=== PATIENT | male | born 1950 | race Asian ===

== ENCOUNTER 2020-02-26 19:36 | Emergency (ER) | payer OTHER, MEDICAID ==
[~2020-02-26] VITALS: Ht 180.3 cm; Wt 83.9 kg
[2020-02-26 19:49] VITALS: Ht 180.3 cm; Wt 83.9 kg
[2020-02-26 21:00] LABS: BASOPHIL % 0.8 % (0-2); PLATELET COUNT 262 x10^3mcL (130-400); RED CELL DISTRIBUTION WIDTH 14.6 % (11.5-14.5)
[2020-02-26 21:10] LABS: CALCIUM 8.8 mg/dL (8.5-10.1); CARBON DIOXIDE 23.1 mmol/L (21-32); CHLORIDE SERUM 107 mmol/L (98-107); CREATININE SERUM 1.7 mg/dL (0.7-1.3); GFR1 43 mL/min; GLUCOSE SERUM 124 mg/dL (74-106); POTASSIUM SERUM 4.1 mmol/L (3.5-5.1); SODIUM SERUM 144 mmol/L (136-145)
[2020-02-26 21:14] LABS: ALBUMIN 3.7 g/dL (3.4-5.0); ALKALINE PHOSPHATASE 95 U/L (46-116); ALT/SGPT 28 U/L (16-63); AST/SGOT 23 U/L (15-37); BILIRUBIN TOTAL 0.46 mg/dL (0.20-1.00); TOTAL PROTEIN, SERUM 7.9 g/dL (6.4-8.2)
[2020-02-26 21:17] LABS: CHOLESTEROL 210 mg/dL (<200)
[2020-02-26 22:57] VITALS: BP 112/68
== END 2020-02-26 22:57 | disposition home or self-care (01) ==
LOC: ED 19:36
PROVIDERS: Specialist
DX: E16.2 Hypoglycemia, unspecified (principal); I10 Essential (primary) hypertension; E11.9 Type 2 diabetes mellitus without complications; Z13.9 Encounter for screening, unspecified
CPT/HCPCS: 82962; G0480; J7030

== ENCOUNTER → 2020-02-26 | Emergency (ER) | payer OTHER | LOC: ED 19:36 | DX: Z02.89 Encounter for other administrative examinations (principal) | CPT/HCPCS: J7030 ==